=== PATIENT | male | born 1985 | race African-American/Black ===

== ENCOUNTER 2017-05-29 04:10 | Emergency (ER) | payer MEDICAID ==
[~2017-05-29] VITALS: Ht 170.2 cm; Wt 68.0 kg
[2017-05-29 04:19] VITALS: BP 135/72
--- NOTE | 2017-05-29 04:24 | NUR ---
PT TAKEN TO BED 7
--- NOTE | 2017-05-29 04:31 | NUR ---
32 Y/O M W/C/O BURNING PAIN WITH URINATION WHICH RADIATES TO LOWER BACK AND WHILE PENILE DISCHARGE X 2 DAYS. NO MED HX. NO S/S OF DISTRESS NOTED AT THE MOMENT. ER MADE AWARE.
--- NOTE | 2017-05-29 04:34 | NUR ---
Dr. Rollins evaluating patient at bedside.
[2017-05-29] MEDS ORDERED: cefTRIAXone 250 MG in LIDOCAINE 1% ED 0.9 ML IM ONE (04:40)
[2017-05-29] MEDS ORDERED: PHENAZOPYRIDINE 100 MG TAB PO ONE (04:40)
[2017-05-29] MEDS ORDERED: AZITHROMYCIN 250 MG TAB PO ONE (04:40)
[2017-05-29 05:21] VITALS: BP 135/72
--- NOTE | 2017-05-29 05:21 | NUR ---
Patient discharged with v/s stable. Written and verbal after care instructions given and explained. Patient alert, oriented and verbalized understanding of instructions. Ambulatory with steady gait. All questions addressed prior to discharge. ID band removed. Patient advised to follow up with PMD OR RETURN BACK TO ER IF CONDITION WORSENS. Rx of PHENAZOPYRIDINE, AND TYLENOL WITH CODEINE given. Patient educated on indication of medication including possible reaction and side effects. Opportunity to ask questions provided and answered.
[2017-05-31 15:27] LABS: CHLAMYDIA TRACHOMATIS AMP DNA Negative (Negative)
== END 2017-05-29 05:21 | disposition home or self-care (01) ==
LOC: MED 04:10
CPT/HCPCS: 36415; 87491; 96372; 99283; J0696; J2001; 81002